=== PATIENT | male | born 1985 | race Caucasian/White ===

== ENCOUNTER 2019-09-23 15:28 | Emergency (ER) | payer MEDICAID ==
[~2019-09-23] VITALS: Ht 165.1 cm; Wt 67.0 kg
[2019-09-23] MEDS ORDERED: IBUPROFEN 600MG TABLET PO ONE (17:00)
[2019-09-23 17:31] VITALS: BP 146/92
== END 2019-09-23 17:46 | disposition home or self-care (01) ==
LOC: ER 15:28
DX: S82.402A Unspecified fracture of shaft of left fibula, initial encounter for closed fracture (principal); S82.892A Other fracture of left lower leg, initial encounter for closed fracture; S82.52XA Displaced fracture of medial malleolus of left tibia, initial encounter for closed fracture; W18.39XA Other fall on same level, initial encounter; Y93.55 Activity, bike riding; Y92.9 Unspecified place or not applicable
CPT/HCPCS: 29505; 73590; 73610; 99283

== ENCOUNTER 2019-11-20 10:32 | Emergency (ER) | payer MEDICAID ==
[~2019-11-20] VITALS: Ht 162.6 cm; Wt 82.0 kg
[2019-11-20] MEDS ORDERED: IBUPROFEN 600MG TABLET PO ONE (11:15)
[2019-11-20 11:24] VITALS: BP 153/98
== END 2019-11-20 12:46 | disposition home or self-care (01) ==
LOC: ER 10:32 → EDBD 10:32 → ER 12:46
DX: S82.892D Other fracture of left lower leg, subsequent encounter for closed fracture with routine healing (principal); V19.9XXD Pedal cyclist (driver) (passenger) injured in unspecified traffic accident, subsequent encounter
CPT/HCPCS: 73610; 99283